=== PATIENT | female | born 1965 | race Two or more races ===

== ENCOUNTER → 2024-04-14 | Outpatient (CLI) | payer BC ==
[2024-04-14 08:48] LABS: Urine Bacteria None Seen /hpf (None Seen)
[2024-04-14 08:55] LABS: Basophils # (auto) 0 10 ^3/uL (0-0.2); Basophils % (auto) 0.5 % (0.0-2.0); Eosinophils # (auto) 0.1 10 ^3/uL (0-0.8); Eosinophils % (auto) 0.7 % (0.0-7.0); Hematocrit 42.6 % (36.0-46.0); Hemoglobin 14.5 g/dL (12.2-16.2); Lymphocytes # (auto) 1.6 10 ^3/uL (0.4-5.4); Lymphocytes % (auto) 21.6 % (10.0-50.0); Mean Corpuscular Volume 85.2 fL (80.0-100.0); Monocytes # (auto) 0.5 10 ^3/uL (0-1.3); Monocytes % (auto) 6.3 % (0.0-12.0); Neutrophils # (auto) 5.1 10 ^3/uL (1.6-8.6); Neutrophils % (auto) 70.9 % (37.0-80.0); Red Blood Cells 4.99 10^6/uL (4.0-5.20); White Blood Cell 7.2 10^3/uL (4.4-10.8)
[2024-04-14 09:03] LABS: Urine Blood Negative /uL (Negative); Urine Clarity Clear (Clear); Urine Color Light-Yellow (Yellow); Urine Protein, UAD Negative (Negative); Urine Specific Gravity 1.021 (1.001-1.035); Urine Urobilinogen Normal (Negative); Urine WBC 1 /hpf (0 - 5)
[2024-04-14 09:30] LABS: Alanine Aminotransferase 10 U/L (7-40); Albumin 4.6 g/dL (3.2-4.8); Alkaline Phosphatase 103 U/L (46-116); Anion Gap 4 (5-15); Aspartate Aminotransferase < 8 U/L (13-40); BUN/Creatinine Ratio 11.9 (10.0-20.0); Blood Urea Nitrogen 10 mg/dL (9-23); Calcium 9.7 mg/dL (8.5-10.1); Carbon Dioxide 29 mmol/L (20-30); Chloride 109 mmol/L (98-107); Cholesterol 159 mg/dL (< 200); Glucose 109 mg/dL (74-106); HDL Cholesterol 44 mg/dL (40-59); LDL Cholesterol 97 mg/dL (< 100); Potassium 4.5 mmol/L (3.5-5.1); Sodium 142 mmol/L (136-145); Triglycerides 108 mg/dL (< 150)
[2024-04-14 09:31] LABS: Bilirubin, Total 0.3 mg/dL (0.2-1.0); Total Protein 7.4 g/dL (5.7-8.2)
[2024-04-14 09:54] LABS: Erythrocyte Sedimentation Rate 15 mm/hr (0-20)
[2024-04-14 11:12] LABS: Follicle Stimulating Hormone 69.66 IU/L (SEE BELOW)
[2024-04-14 11:26] LABS: Free T4 (Free Thyroxine) 1.37 ng/dL (0.89-1.76)
== END | disposition home or self-care (01) ==
LOC: LAB 08:24
PROVIDERS: ATTEND Internal Medicine
DX: Z00.00 Encounter for general adult medical examination without abnormal findings (principal); M25.562 Pain in left knee
CPT/HCPCS: 36415; 80053; 80061; 81001; 82270; 83001; 84439; 84443; 85025; 85652

== ENCOUNTER → 2024-09-22 | Outpatient (CLI) | payer BC ==
[2024-09-22 09:14] LABS: Erythrocyte Sedimentation Rate 12 mm/hr (0-20)
[2024-09-23 08:07] LABS: Rheumatoid Arthritis Factor <10.0 IU/mL (<14.0)
== END | disposition home or self-care (01) ==
LOC: LAB 07:52
PROVIDERS: ATTEND Internal Medicine
DX: M79.10 Myalgia, unspecified site (principal)
CPT/HCPCS: 36415; 82306; 82550; 82607; 85652; 86431

== ENCOUNTER 2025-02-14 20:10 | Emergency (ER) | payer BC ==
[~2025-02-14] VITALS: Ht 172.7 cm; Wt 132.5 kg
--- NOTE | 2025-02-14 20:51 | ED.PDOC ---
History of Present Illness HPI Comments 60 y/o morbidly obese F, with a history of cholecystectomy, presents with son for c/o nonradiating, epigastric abdominal pain, nausea, vomiting, and diarrhea for the past 3 hours, today. Denies any recent drug use. Denies any blood in her vomitus, constipation, rectal pain, urinary symptoms or other associated symptoms. Patient was histrionic at time of evaluation and blood pressure was elevated at arrival. Time Seen by MD: 20:40 Reviewed Notes: Nurses Notes, Medications, Allergies Allergies: Coded Allergies: Ciprofloxacin (Verified Allergy, Unknown, 02/14/25) Sulfa Antibiotics (Verified Allergy, Unknown, 02/14/25) Information Source: Patient Mode of Arrival: Ambulatory Severity: Moderate Timing: Hours Duration: Since onset Prehospital treatment: None Past Medical History PAST MEDICAL HISTORY: Denies Surgical History: Cholecystectomy ECOTHERAPIST History: Denies all ECOTHERAPIST Hx Family History Family History: Unknown Social History Smoker: Non-Smoker Alcohol: Denies ETOH Use Drugs: Denies Drug Use Lives In: Home Constitutional: denies: chills, diaphoresis, fatigue, fever, malaise, sweats, weakness, others EENTM: denies: blurred vision, double vision, ear bleeding, ear discharge, ear drainage, ear pain, ear ringing, eye pain, eye redness, hearing loss, mouth pain, mouth swelling, nasal discharge, nose bleeding, nose congestion, nose pain, photophobia, tearing, throat pain, throat swelling, voice changes, others Respiratory: denies: cough, hemoptysis, orthopnea, SOB at rest, shortness of breath, SOB with excertion, stridor, wheezing, others Cardiovascular: denies: chest pain, dizzy spells, diaphoresis, Dyspnea on exertion, edema, irregular heart beat, left arm pain, lightheadedness, palpitations, PND, syncope, others Gastrointestinal: reports: abdominal pain, diarrhea, nausea, vomiting; denies: abdomen distended, blood streaked bowels, constipated, dysphagia, difficulty swallowing, hematemesis, melena, poor appetite, poor fluid intake, rectal bleeding, rectal pain, others Genitourinary: denies: abnormal vagina bleeding, burning, dyspareunia, dysuria, flank pain, frequency, hematuria, incontinence, pain, , vagina discharge, urgency, others Neurological: denies: dizziness, fainting, headache, left sided numbness, left sided weakness, numbness, paresthesia, pre-existing deficit, right sided numbness, right sided weakness, seizure, speech problems, tingling, tremors, weakness, others Musculoskeletal: denies: back pain, gout, joint pain, joint swelling, muscle pain, muscle stiffness, neck pain, others Integumetry: denies: bruises, change in color, change in hair/nails, dryness, laceration, lesions, lumps, rash, wounds, others Allergic/Immunocompromised: denies: Difficulty Healing, Frequent Infections, Hives, Itching, others Hematologic/Lymphatic: denies: anemia, blood clots, easy bleeding, easy bruising, swollen glands, others Endocrine: denies: excessive hunger, excessive sweating, excessive thirst, excessive urination, flushing, intolerance to cold, intolerance to heat, unexplained weight gain, unexplained weight loss, others Psychiatric: denies: anxiety, bipolar disorder, depression, hopeless, panic disorder, schizophrenia, sleepless, suicidal, others All Other Systems: Reviewed and Negative (as per HPI) Physical Exam General Appearance: Moderate Distress (Patient was mildly histrionic and in moderate distress at time of evaluation.), Obese HEENT: Normal ENT Inspection, Pharynx Normal, TMs Normal Neck: Full Range of Motion, Non-Tender, Normal, Normal Inspection Respiratory: Chest Non-Tender, Lungs Clear, No Accessory Muscle Use, No Respiratory Distress, Normal Breath Sounds Cardiovascular: No Edema, No JVD, No Murmur, No Gallop, Normal Peripheral Pulses, Regular Rate/Rhythm Breast Exam: Deferred Gastrointestinal: Other (Diffuse nonspecific epigastric tenderness to palpation. Difficult to assess due to body habitus. No pulsatile masses.) Genitalia: Deferred Pelvic: Deferred Rectal: Deferred Extremities: No calf tenderness, Normal capillary refill, Normal inspection, Normal range of motion, Non-tender, No pedal edema Neurologic: Alert, No Motor Deficits, Normal Affect, Normal Mood, No Sensory Deficits Cerebellar Function: Normal Reflexes: Normal Skin: Dry, Normal Color, Warm Lymphatic: No Adenopathy Was a procedure done? Was a procedure done?: No Differential Dx Considerations may include: gastritis, gastroenteritis, cholelithiasis, GERD, PUD, viral syndrome, UTI, among others X-Ray, Labs, Meds, VS Vital Signs Date Time Temp Pulse Resp B/P (MAP) Pulse Ox O2 Delivery O2 Flow Rate FiO2 02/15/25 01:23 98.6 83 16 121/69 (86) 94 98.6 02/14/25 22:17 86 18 146/87 02/14/25 21:47 99 18 155/99 02/14/25 21:40 97.8 99 20 155/99 (117) 99 97.8 02/14/25 21:40 Room Air* 0 21 02/14/25 20:47 97.0 99 20 155/99 (117) 99 97.0 Lab Test 02/15/25 01:47 02/14/25 22:57 02/14/25 22:08 02/14/25 21:35 Range/Units Urine Color Yellow Yellow Urine Clarity Clear Clear Urine pH 6.0 5.0-9.0 Urine Specific Arab 1.025 1.001-1.035 Urine Protein Trace H Negative Urine Ketones 1+ H Negative Urine Blood Negative Negative /uL Urine Nitrite Negative Negative Urine Bilirubin Negative Negative Urine Urobilinogen Normal Negative mg/dL Urine Leukocyte Esterase Negative Negative /uL Urine RBC 2 0 - 4 /hpf Urine Microscopic WBC 1 0-5 /HPF Urine Squamous Epithelial Cells Few <5 /hpf Urine Bacteria None seen None Seen /hpf Urine Mucus Few None Seen Urine Glucose Normal Normal mg/dL Urine Opiates Screen Neg NEGATIVE Urine Fentanyl Screen Neg NEGATIVE Urine Barbiturates Screen Neg NEGATIVE Urine Phencyclidine Screen Neg NEGATIVE Urine Amphetamines Screen Neg NEGATIVE Urine Benzodiazepines Screen Neg NEGATIVE Urine Cocaine Screen Neg NEGATIVE Urine Cannabinoids Screen Neg NEGATIVE Lactic Acid Level 1.4 0.4-2.0 mmol/L Troponin I High Sensitivity < 3 L </=34 ng/L White Blood Count 17.5 H 4.4-10.8 10^3/uL Red Blood Count 5.40 H 4.0-5.20 10^6/uL Hemoglobin 15.3 12.2-16.2 g/dL Hematocrit 46.0 36.0-46.0 % Mean Corpuscular Volume 85.0 80.0-100.0 fL Mean Corpuscular Hemoglobin 28.4 28.0-32.0 pg Mean Corpuscular Hemoglobin Concent 33.3 32.0-36.0 g/dL Red Cell Distribution Width 13.8 11.8-14.3 % Platelet Count 306 140-450 10^3/uL Mean Platelet Volume 7.4 6.9-10.8 fL Neutrophils (%) (Auto) 90.9 H 37.0-80.0 % Lymphocytes (%) (Auto) 2.5 L 10.0-50.0 % Monocytes (%) (Auto) 6.1 0.0-12.0 % Eosinophils (%) (Auto) 0.1 0.0-7.0 % Basophils (%) (Auto) 0.4 0.0-2.0 % Neutrophils # (Auto) 15.9 H 1.6-8.6 10 ^3/uL Lymphocytes # (Auto) 0.4 0.4-5.4 10 ^3/uL Monocytes # (Auto) 1.1 0-1.3 10 ^3/uL Eosinophils # (Auto) 0 0-0.8 10 ^3/uL Basophils # (Auto) 0.1 0-0.2 10 ^3/uL Nucleated Red Blood Cells 0.0 % B-Type Natriuretic Peptide 10.66 0-100 pg/mL Test 02/14/25 21:08 Range/Units Sodium Level 142 136-145 mmol/L Potassium Level 3.3 L 3.5-5.1 mmol/L Chloride Level 108 H 98-107 mmol/L Carbon Dioxide Level 21 20-31 mmol/L Anion Gap 13 5-15 Blood Urea Nitrogen 9 9-23 mg/dL Creatinine 0.93 0.550-1.02 mg/dL Glomerular Filtration Rate Calc 70 >90 mL/min BUN/Creatinine Ratio 9.7 L 10.0-20.0 Serum Glucose 168 H 74-106 mg/dL Lactic Acid Level 2.3 *H 0.4-2.0 mmol/L Calcium Level 10.0 8.7-10.4 mg/dL Total Bilirubin 0.3 0.2-1.0 mg/dL Aspartate Amino Transferase (AST) 18 13-40 U/L Alanine Aminotransferase (ALT) 13 7-40 U/L Alkaline Phosphatase 116 46-116 U/L Troponin I High Sensitivity < 3 L </=34 ng/L Total Protein 8.2 5.7-8.2 g/dL Albumin 4.9 H 3.2-4.8 g/dL Lipase 45 12-53 U/L Plasma/Serum Blood Alcohol < 3.0 <10 mg/dL Current Medications Medications (Trade) Dose Ordered Sig/José Route Start Time Stop Time Status Last Admin Hydromorphone HCl (Dilaudid Injection) 0.5 mg ONCE ONCE IM 02/14/25 20:45 02/14/25 20:46 DC 02/14/25 21:47 Ondansetron HCl (Zofran) 4 mg ONCE ONCE IM 02/14/25 20:45 02/14/25 20:46 DC 02/14/25 21:47 X-Ray, Labs, Meds, VS Comment All studies performed the ED were evaluated by me personally. CT of abdomen and pelvis was unremarkable for any acute process. No acute abdominal or pelvic findings noted. Serum laboratories [place] [id number]. No other critical findings were noted. Urinalysis was unremarkable. Patient may have an infected gastritis. Medication dispensed was effective. Patient will go home with a prescription for Flagyl antibiotics and pain medication. Advised good hydration and healthy nutrition throughout. Time of 1ST Reevaluation: Reevaluation 1ST: Improved Consultation: PCP Patient Education/Counseling: Diagnosis, Treatment Family Education/Counseling: Diagnosis, Treatment Departure 1 Departure Time of Disposition: Impression: Primary Impression: Gastritis due to bacteria Disposition: HOME / SELF CARE / HOMELESS Condition: Stable Additional Instructions: Advised patient utilize antibiotics as directed until completion as well as additional medication as needed. Good hydration and healthy nutrition throughout. Patient has been advised to not utilize alcohol at all as utilizing this Flagyl medication and alcohol can result in projectile vomiting. e-Prescriptions Acetaminophen (Acetaminophen) 500 Mg Tab 500 MG PO Q4HP PRN, #20 TAB Prov: ESTEPHANIA READ PAC 02/15/25 Tramadol Hcl (Tramadol Hcl) 50 Mg Tab 50 MG PO Q6HP PRN, #12 TAB Prov: ESTEPHANIA READ PAC 02/15/25 Ondansetron Odt 4MG Tab (ZOFRAN PO) 4 Mg Tb 4 MG PO Q6HP PRN, #15 TAB ODT TAB-DISSOLVE IN MOUTH, THEN SWALLOW Prov: ESTEHPANIA READ PAC 02/15/25 Metronidazole (Flagyl) 500 Mg Tab 1 TAB PO TID for 5 Days, #15 TAB Prov: ESTEPHANIA READ PAC 02/15/25 Discharged With: Self, Relative Critical Care Note Critical Care Time?: No Stability Stability form required: No Heart Score Heart Score: Heart Score Response (Comments) Value History N/A 0 EKG N/A 0 Age N/A 0 Risk Factors N/A 0 Troponin N/A 0 Total 0 I personally scribed for ESTEPHANIA READ PAC ([email or web address]) on 02/14/25 at 20:51. Electronically submitted by Ben Eagle [email or web address]). ESTEPHANIA READ PAC February 14, 2025 20:51
[2025-02-14 21:34] LABS: Alanine Aminotransferase 13 U/L (7-40); Alkaline Phosphatase 116 U/L (46-116); Anion Gap 13 (5-15); Aspartate Aminotransferase 18 U/L (13-40); BUN/Creatinine Ratio 9.7 (10.0-20.0); Carbon Dioxide 21 mmol/L (20-31); Sodium 142 mmol/L (136-145)
[2025-02-14 21:35] LABS: Albumin 4.9 g/dL (3.2-4.8); Bilirubin, Total 0.3 mg/dL (0.2-1.0); Blood Alcohol < 3.0 mg/dL (<10); Blood Urea Nitrogen 9 mg/dL (9-23); Chloride 108 mmol/L (98-107); Glucose 168 mg/dL (74-106); Potassium 3.3 mmol/L (3.5-5.1); Total Protein 8.2 g/dL (5.7-8.2)
[2025-02-14 21:37] LABS: Lactic Acid w/Reflex 2.3 mmol/L (0.4-2.0)
[2025-02-14 21:44] LABS: Basophils # (auto) 0.1 10 ^3/uL (0-0.2); Basophils % (auto) 0.4 % (0.0-2.0); Eosinophils # (auto) 0 10 ^3/uL (0-0.8); Eosinophils % (auto) 0.1 % (0.0-7.0); Hemoglobin 15.3 g/dL (12.2-16.2); Lymphocytes # (auto) 0.4 10 ^3/uL (0.4-5.4); Lymphocytes % (auto) 2.5 % (10.0-50.0); Mean Corpuscular Hemoglobin 28.4 pg (28.0-32.0); Mean Corpuscular Hgb Conc. 33.3 g/dL (32.0-36.0); Monocytes # (auto) 1.1 10 ^3/uL (0-1.3); Monocytes % (auto) 6.1 % (0.0-12.0); Neutrophils # (auto) 15.9 10 ^3/uL (1.6-8.6); Neutrophils % (auto) 90.9 % (37.0-80.0); Platelet Count (auto) 306 10^3/uL (140-450); Red Cell Distribution Width 13.8 % (11.8-14.3); White Blood Cell 17.5 10^3/uL (4.4-10.8)
[2025-02-14 21:46] LABS: Lipase 45 U/L (12-53)
[2025-02-14] MEDS: HYDROmorphone HCL 2 MG/ML VL/or syr IM ONE (21:47)
[2025-02-14] MEDS: ONDANSETRON HCL 4 MG/2 ML VIAL IM ONE (21:47)
--- NOTE | 2025-02-14 21:55 | DVH ---
Exam: CT CT AB PEL WO CON-NO ORAL OR IV History: Diffuse abdominal pain Comparison Study: None Technique: Multidetector spiral CT of the abdomen was performed from lung bases to pubic symphysis. Imaging was performed without IV contrast. Axial, coronal and sagittal multiplanar reformats were ob tained from the axial data set by the technologist. Radiation Dose : 1. Abdomen/Pelvis: CTDIvol mGy, DLP mGy*cm. Findings: Evaluation of solid organs is limited due to lack of intravenous contrast use. Lung Bases: No abnormality demonstrated. Liver: Liver is normal in size. No focal lesions noted. Gallbladder and Biliary Tree: Cholycystectomy. No evidence of biliary ductal dilatation. Spleen: No abnormality demonstrated. Pancreas: No abnormality demonstrated. Adrenal Glands: No abnormality demonstrated. Kidneys: No abnormality demonstrated. Bladder: Grossly unremarkable for degree of distention. Bowel: Stomach appears grossly unremarkable. No abnormally dilated or thick-walled loops of large or small bowel noted. Appendix is not visualized and has likely been removed. Ascites: Absent Lymphadenopathy: No evidence of lymphadenopathy. Abdominal Wall and Mesentery: Unremarkable. Vasculature: Unremarkable given lack of intravenous contrast. Pelvic Organs: Unremarkable Musculoskeletal: No bony lesions or fracture. IMPRESSION: No acute abdominal or pelvic findings. Radiation optimization: All CT scans at this facility use at least one of these dose optimization chio hniques: automated exposure control mA and/or kV adjustment per patient size (includes targeted exam s where dose is matched to clinical indication) or iterative reconstruction.
[2025-02-15 01:23] VITALS: BP 121/69; PULSE 83; RESP 16; TEMP 98.6; O2SAT 94
[2025-02-15 01:49] LABS: Urine Bacteria None Seen /hpf (None Seen)
[2025-02-15] MEDS ORDERED: CEPHALEXIN 250 MG CAP PO ONE (02:00)
[2025-02-15] MEDS ORDERED: CIPROFLOXACIN HCL 500 MG TAB PO ONE (02:00)
[2025-02-15 02:12] LABS: Opiate Scree,Urine Neg (NEGATIVE)
[2025-02-15 02:13] LABS: Amphetamine Screen, Urine Neg (NEGATIVE); Barbiturate Scree,Urine Neg (NEGATIVE); Benzodiazephine Screen, Urine Neg (NEGATIVE); Cannabinoid Screen, Urine Neg (NEGATIVE); Cocaine Screen, Urine Neg (NEGATIVE); Phencyclidine Screen, Urine Neg (NEGATIVE); Urine Blood Negative /uL (Negative); Urine Clarity Clear (Clear); Urine Color Yellow (Yellow); Urine Mucus FEW (None Seen); Urine Protein, UAD TRACE (Negative); Urine Specific Gravity 1.025 (1.001-1.035); Urine Squamous Epithelial Cell FEW /hpf (<5); Urine Urobilinogen Normal (Negative); Urine WBC 1 /HPF (0-5)
[2025-02-15] MEDS ORDERED: TRAM50TA2 PO (02:25)
[2025-02-15] MEDS ORDERED: METR-344 PO (02:25)
[2025-02-15] MEDS ORDERED: ACET500T58 PO (02:25)
[2025-02-15] MEDS ORDERED: ZOFR4T PO (02:25)
[2025-02-15] MEDS: POTASSIUM EFFERVESENT TAB 25 MEQ PO ONE (04:45)
[2025-02-15] MEDS: metroNIDAZOLE 500 MG TAB PO ONE (04:45)
== END 2025-02-15 04:47 | disposition home or self-care (01) ==
LOC: ER 20:18
DX: K29.70 Gastritis, unspecified, without bleeding (principal); Z90.49 Acquired absence of other specified parts of digestive tract; Z79.899 Other long term (current) drug therapy
CPT/HCPCS: 36415; 74176; 80053; 80307; 80320; 81001; 83605; 83690; 83880; 84484; 85025; 96372; 99285; J1171; J2405

== ENCOUNTER 2025-04-02 12:04 | Outpatient (CLI) | payer BC ==
[~2025-04-02 12:04] MED LIST: ACET500T58 PO; METR-344 PO; TRAM50TA2 PO; ZOFR4T PO
[2025-04-03 06:06] LABS: Hepatitis B Core Total Antibod Negative (Negative); Thyroid Peroxidase (TPO) Ab 11 IU/mL (0-34)
[2025-04-03 08:07] LABS: Complement C3 143 mg/dL (82-167); Rheumatoid Arthritis Factor <10.0 IU/mL (<14.0)
[2025-04-03 11:07] LABS: Anti-Nuclear Antibody Direct Negative (Negative); Anti-dsDNA Antibody <1 IU/mL (0-9); Antiscleroderma-70 Antibody <0.2 AI (0.0-0.9); RNP Antibody <0.2 AI (0.0-0.9); Sjogren's Anti-SS-A Antibody 0.3 AI (0.0-0.9); Sjogren's Anti-SS-B Antibody <0.2 AI (0.0-0.9); Smith Antibody <0.2 AI (0.0-0.9)
[2025-04-03 15:21] LABS: Hepatitis B Core IgM Negative (Negative); Hepatitis B Surface Antibody Negative (Negative); Hepatitis B Surface Antigen Negative (Negative); Hepatitis C Antibody Negative (Negative)
[2025-04-04 13:07] LABS: Actin (Smooth Muscle) Antibody 19 Units (0-19); Mitochondrial (M2) Antibody <20.0 Units (0.0-20.0)
== END 2025-04-02 17:00 | disposition home or self-care (01) ==
LOC: LAB 12:04
PROVIDERS: ATTEND Internal Medicine
DX: L30.9 Dermatitis, unspecified (principal)
CPT/HCPCS: 36415; 86160; 86225; 86235; 86376; 86431; 86705; 86706; 86803; 87340